=== PATIENT | male | born 1950 | race Caucasian/White ===

== ENCOUNTER 2023-01-01 12:37 | Emergency (ER) | payer MEDICARE, BC, SELFPAY ==
[2023-01-01 12:45] VITALS: BP 121/75; PULSE 88; RESP 16; TEMP 36.1; O2SAT 100; BMI 21.7
--- NOTE | 2023-01-01 13:21 | ED.WOUNDLAC ---
HPI - Wound/Laceration General Chief Complaint: Laceration/Wound Stated Complaint: hand laceration Time Seen by Provider: 01/01/23 12:44 History of Present Illness HPI narrative: This 72-year-old male comes in with an injury to his left hand. 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 He was cutting vinyl siding with a utility knife and the knife slipped causing injury to the webspace between his thumb and index finger of the left hand. He states that his tetanus status is up-to-date. Related Data Home Medications Medication Instructions Recorded Confirmed ibrutinib 140 mg capsule 420 mg PO DAILY 01/01/23 01/01/23 (Imbruvica) simvastatin 40 mg tablet 40 mg PO QPM 01/01/23 01/01/23 tamsulosin 0.4 mg capsule 0.4 mg PO DAILY 01/01/23 01/01/23 valacyclovir 500 mg tablet 500 mg PO DAILY 01/01/23 01/01/23 Allergies Allergy/AdvReac Type Severity Reaction Status Date / Time No Known Drug Allergies Allergy Verified 01/01/23 12:50 Review of Systems Status of ROS: Reports: 10 or more systems reviewed and unremarkable except as noted in History and below Narrative: Constitutional: No fevers, no weight gain or loss. Eyes: No discharge. No vision changes. HENT: No congestion, no sore throat, no ear pain. Cardiovascular: No chest pain, no palpitations. Respiratory: No shortness of breath, no wheezes, no cough. Gastrointestinal: No abdominal pain, no vomiting, no diarrhea. Genitourinary: No dysuria, no hematuria. Musculoskeletal: Normal range of motion. Skin: No rashes, no pruritis. Neurological: No dizziness, weakness, sensory change, speech change. Endo/Heme/Allergies: No bruising or bleeding. No polydipsia. Pysch: no suicidality, no anxiety, no insomnia. All other systems reviewed and are negative. Exam Narrative: Exam Narrative: Constitutional: Well-developed, well-nourished, no acute distress. HEENT: Normocephalic, atraumatic. Neck: Normal range of motion. Nontender. Supple. Heart: Intact distal pulses. Lungs: No chest discomfort. No wheezes, rhonchi, or rales. Abdomen: Nontender. Back: Normal range of motion. Extremities: Normal range of motion. 2 cm linear laceration over the thenar muscle between the thumb and index finger of his left hand. No sign of tendon or nerve injury. Skin: No rash. Warm. No erythema or pallor. Neurologic: No altered sensation. No weakness. Alert and oriented. Psychiatric: No suicidality. No anxiety or depression. No insomnia. Nursing notes and vitals signs are reviewed. Const: Vital Signs, click to edit/add: Vital Signs - 24 hr 01/01/23 12:45 Temperature 96.9 F L Pulse Rate [Left P ulse Oximeter] 88 Respiratory Rate 16 Blood Pressure [Ri ght Upper Arm] 121/75 Pulse Oximetry 100 Oxygen Delivery Me thod Room Air Course Vital Signs Vital signs: Initial Vital Signs Temperature 96.9 F L 01/01/23 12:45 Temperature Source Temporal Artery Scan 01/01/23 12:45 Pulse Rate 88 01/01/23 12:45 Respiratory Rate 16 01/01/23 12:45 Blood Pressure 121/75 01/01/23 12:45 Blood Pressure Mean 90 01/01/23 12:45 Blood Pressure Position Sitting 01/01/23 12:45 Pulse Oximetry 100 01/01/23 12:45 Oxygen Delivery Method Room Air 01/01/23 12:45 Vital Signs Temperature 96.9 F L 01/01/23 12:45 Pulse Rate 88 01/01/23 12:45 Respiratory Rate 16 01/01/23 12:45 Blood Pressure 121/75 01/01/23 12:45 Pulse Oximetry 100 01/01/23 12:45 Oxygen Delivery Method Room Air 01/01/23 12:45 Temperature 96.9 F L 01/01/23 12:45 Pulse Rate 88 01/01/23 12:45 Respiratory Rate 16 01/01/23 12:45 Blood Pressure 121/75 01/01/23 12:45 Pulse Oximetry 100 01/01/23 12:45 Oxygen Delivery Method Room Air 01/01/23 12:45 MDM - Wound/Laceration MDM Narrative Medical decision making narrative: This patient has a 2 cm linear laceration on his left hand that would benefit from suture repair. After 1% lidocaine with epinephrine was administered the wound was cleansed and explored to its base. 3 sutures were placed in interrupted fashion using 4.0 Ethilon suture to approximate the wound edges. Instructions were given regarding wound care. A bandage was applied and the patient is instructed to have sutures removed in 7-10 days. Discharge Plan Discharge Clinical Impression: Laceration Patient Disposition: Home, Self-Care Condition: Improved Additional Instructions: Keep wound clean and dry. Return to clinic or urgent care in 7-10 days for suture removal. Prescriptions: No Action valacyclovir 500 mg tablet 500 mg PO DAILY simvastatin 40 mg tablet 40 mg PO QPM tamsulosin 0.4 mg capsule 0.4 mg PO DAILY Imbruvica 140 mg capsule 420 mg PO DAILY Follow Up/Referrals: Amando Goldsmith MD [Primary Care Provider] - Stand Alone Forms: Networked [employer] Info Instructions
== END 2023-01-01 13:36 | disposition home or self-care (01) ==
PROVIDERS: Emergency Provider Emergency Medicine Emergency Medical Services; PCP Student in an Organized Health Care Education/Training Program
DX: S61.411A Laceration without foreign body of right hand, initial encounter (principal); W26.0XXA Contact with knife, initial encounter
CPT/HCPCS: 12001; 99283; 99284

== ENCOUNTER 2023-12-09 08:19 | Outpatient (RCR) | payer MEDICARE, BC, SELFPAY ==
--- NOTE | 2023-11-25 10:29 | URNOTE ---
Prior auth is not required for [facility] ([id number]). Pt has medicare primary. Services are based on medical necessity and follow medicare guidelines.
[2023-12-09 08:36] VITALS: BP 101/63; PULSE 69; RESP 16; TEMP 36.3; O2SAT 95
[2023-12-09] MEDS: 5 % DEXTROSE 250 ML IV (10:29)
[2023-12-09] MEDS: SODIUM CHLORIDE 0.9 % (FLUSH) 10 ML SYRINGE IVF (10:30)
[2023-12-09 10:50] VITALS: BP 106/69; PULSE 67; RESP 14; TEMP 36.1; O2SAT 97
== END 2024-06-06 23:59 | disposition home or self-care (01) ==
LOC: CCIC 08:19
PROVIDERS: PCP Student in an Organized Health Care Education/Training Program; Referring Provider Student in an Organized Health Care Education/Training Program; Visit Provider Clinical Nurse Specialist
DX: C91.10 Chronic lymphocytic leukemia of B-cell type not having achieved remission (principal); D80.1 Nonfamilial hypogammaglobulinemia
CPT/HCPCS: 96365; 96366; J1569; J7050

== ENCOUNTER 2024-06-29 08:28 | Outpatient (RCR) | payer MEDICARE, BC, SELFPAY ==
[2024-06-29 08:45] VITALS: BP 113/69; PULSE 77; RESP 16; TEMP 35.8; O2SAT 95
[2024-06-29 09:07] VITALS: TEMP 35.8
[2024-06-29] MEDS: ACETAMINOPHEN 325 MG TABLET 650 MG PO (09:07)
[2024-06-29] MEDS: GAMMAGARD IVPB (09:36)
[2024-06-29] MEDS: INTRAVIA CONTAINER IVPB (09:36)
== END 2024-12-26 23:59 | disposition home or self-care (01) ==
LOC: CCIC 08:28
PROVIDERS: PCP Student in an Organized Health Care Education/Training Program; Referring Provider Student in an Organized Health Care Education/Training Program; Visit Provider Clinical Nurse Specialist
DX: C91.10 Chronic lymphocytic leukemia of B-cell type not having achieved remission (principal); D80.1 Nonfamilial hypogammaglobulinemia
CPT/HCPCS: 96365; 96366; A9270; J1569